=== PATIENT | male | born 1985 | race Caucasian/White ===

== ENCOUNTER 2017-03-03 14:56 | Emergency (ER) | payer OTHER ==
--- NOTE | ~2017-03-03 | CR229 ---
[facility] A Service of [facility] RADIOLOGY TEXT RESULTS PATIENT: MARIBELL CRUMP LOCATION: [facility] : [birth year] UNIT #: [id number] AGE: [address]: Barby Macedo MD SEX: M ORDER DR: [id number] [facility] [address] [place], [place] [address] [id number] MR#: [id number] Acc #: [id number] NAME: MARIBELL CRUMP. : 1985 SEX: M STUDY DATE/TIME: 03/03/2017 16:06 UNIT: [facility] ROOM: STUDY DESCRIPTION: CR Shoulder Min 2 View Lt Attending Physician: Barby Macedo M.D. Ordering Physician: Barby Macedo M.D. Primary Care Physician: Dirk Anaya II., M.D. MEDICAL IMAGING REPORT This report is preliminary unless electronic signature is present EXAM Left shoulder 4 views INDICATION Left shoulder pain today after a seizure. COMPARISON 11/07/2014 FINDINGS The alignment is normal. There is no evidence for a shoulder dislocation. There is a stable Hill-Sachs deformity. No definite acute fracture. IMPRESSION No evidence for shoulder dislocation. Stable Hill-Sachs deformity. Dictated by... Rober Rossi M.D. THIS IS AN ELECTRONICALLY VERIFIED REPORT Rober Rossi M.D. at 03/05/2017 7:44 AM CLIFTON/alexi TD: 03/04/2017 08:12 JOB #: [id number] MEDICAL IMAGING REPORT Page 1 of 1 COPY
--- NOTE | ~2017-03-03 | CT71 ---
[facility] A Service [facility] RADIOLOGY TEXT RESULTS PATIENT: MARIBELL CRUMP LOCATION: [facility] : 83 UNIT #: [id number] AGE: [address]: Barby Macedo MD SEX: M ORDER DR: [id number] [facility] [address] [place], [place] [address] [id number] E MR#: [id number] Acc #: [id number] NAME: MARIBELL CRUMP. : 1985 SEX: M STUDY DATE/TIME: 03/03/2017 15:44 UNIT: [facility] ROOM: STUDY DESCRIPTION: CT Head Wo Contrast Attending Physician: Barby Macedo M.D. Ordering Physician: Barby Macedo M.D. Primary Care Physician: Dirk Anaya II., M.D. MEDICAL IMAGING REPORT This report is preliminary unless electronic signature is present EXAM Head CT no contrast, 03/03/2017 HISTORY New onset seizures today. PROCEDURE Axial unenhanced head CT. This CT exam was performed with one or more of the following radiation dose reduction techniques: automatic exposure control, adjustment of mA and/or kV according to patient size, and iterative reconstruction. COMPARISON Prior head CT dated 11/08/2014. FINDINGS Axial noncontrast images were obtained from the skull base to the vertex. Ventricular size and configuration are normal. There is no evidence of acute infarct or hemorrhage. There are no extra-axial fluid collections. No mass lesion or mass effect is seen. There are no skull fractures. IMPRESSION Normal noncontrast head CT. Dictated by... Daniel Gill M.D. THIS IS AN ELECTRONICALLY VERIFIED REPORT Daniel Gill M.D. at 03/05/2017 10:31 AM PETRA/karine [facility] A Service [facility] RADIOLOGY TEXT RESULTS PATIENT: MARIBELL CRUMP LOCATION: [facility] : 83 UNIT #: [id number] AGE: [address]: Barby Macedo MD SEX: M ORDER DR: TD: 03/04/2017 03:12 JOB #: [id number] MEDICAL IMAGING REPORT Page 1 of 1 COPY
[2017-03-03 15:22] LABS: BASOPHIL% 0.2 % (0-2.5); EOSINOPHIL# 0.1 X10e3 (0-0.7); LYMPHOCYTE# 4.1 X10e3 (1.0-3.5); LYMPHOCYTE% 27.3 % (17.0-45.0); MEAN CELL VOLUME 89.4 FL (83-96); MEAN CORPUSCULAR HEMOGLOBIN 28.5 PG (28-34); MEAN CORPUSCULAR HGB CONC 31.9 g/dL (30-36); MONOCYTE# 0.8 X10e3 (0-1.0); MONOCYTE% 5.4 % (3.0-12.0); NEUTROPHIL# 9.8 X10e3 (1.5-7.1); NEUTROPHIL% 66.1 % (40-75); PLATELET COUNT 244 X10e3 (140-420); RED CELL DISTRIBUTION WIDTH 13.7 % (11.0-15.5); WHITE BLOOD COUNT 14.9 X10e3 (4.0-10.5)
[2017-03-03 15:25] LABS: DIFF IND NO
[2017-03-03 16:15] LABS: ALKALINE PHOSPHATASE 77 U/L (32-92); AST (SGOT) 31 U/L (10-42); BILIRUBIN, DIRECT 0.1 mg/dL (0.0-0.2); BILIRUBIN,INDIRECT 0.9 mg/dL (0.0-0.9); BLOOD UREA NITROGEN 12 mg/dL (9-23); CALCIUM SERUM 9.3 mg/dL (8.4-10.2); CARBON DIOXIDE 11 mmol/L (22-31); CHLORIDE 105 mmol/L (100-111); CREATININE SERUM 1.5 mg/dL (0.6-1.4); GLOM FILT RATE Estimated 60.8 mL/min (>60); GLUCOSE FASTING 125 mg/dL (70-110); POTASSIUM 3.4 mmol/L (3.5-5.1); SODIUM 140 mmol/L (135-145)
[2017-03-03 16:26] LABS: ALCOHOL BLOOD <5 mg/dL (0); ALT (SGPT) 23 U/L (10-40)
[2017-03-03 16:54] LABS: URINE SOURCE CLEAN CATCH
[2017-03-03 17:08] LABS: URINE APPEARANCE CLEAR; URINE BILIRUBIN NEG (NEG); URINE BLOOD 2+ (NEG); URINE COLOR YELLOW; URINE GLUCOSE NEG (NEG); URINE KETONE TRACE (NEG); URINE LEUKOCYTE ESTERASE NEG (NEG); URINE NITRATE NEG (NEG); URINE PH 5.5 (5-8); URINE PROTEIN 1+ (NEG); URINE SPECIFIC GRAVITY 1.019 (1.003-1.035); URINE UROBILINOGEN 0.2 MG/DL (NEG)
[2017-03-03 17:12] LABS: U HYALINE CASTS AUWI 0-2 /[LPF]; URBCS1 AUWI 0-2 /[HPF] (0-2); URINE BACTERIA AUWI NEG (NEGATIVE); URINE SQUAMOUS EPITHELIAL CELL NONE SEEN /[HPF]; UWBCS1 AUWI 0-2 (0-5)
[2017-03-03 17:14] LABS: CULTURE INDICATED? NO
[2017-03-03 17:17] LABS: AMPHETAMINE NEG (NEG); BARBITURATES NEG (NEG); BENZODIAZEPINES NEG (NEG); COCAINE NEG (NEG); MARIJUANA NEG (NEG); OPIATES NEG (NEG); TRICYCLIC ANTIDEPRESSANTS NEG (NEG); U METHADONE NEG (NEG)
== END 2017-03-03 18:11 | disposition home or self-care (01) ==
LOC: CED 14:56
PROVIDERS: Student in an Organized Health Care Education/Training Program
DX: G40.909 Epilepsy, unspecified, not intractable, without status epilepticus (principal); Z91.14 Patient's other noncompliance with medication regimen; F17.200 Nicotine dependence, unspecified, uncomplicated
CPT/HCPCS: 36415; 70450; 73030; 80048; 80076; 80307; 81003; 82947; 85025; 96361; 96374; 96375; 99291; G0480; J2060